=== PATIENT | female | born 1940 | race Caucasian/White ===

== ENCOUNTER → 2021-07-04 | Outpatient (CLI) | payer MEDICARE | END | disposition home or self-care (01) | LOC: RAH 12:09 | PROVIDERS: ATTEND Family Medicine | DX: R22.32 Localized swelling, mass and lump, left upper limb (principal); M19.042 Primary osteoarthritis, left hand; M85.842 Other specified disorders of bone density and structure, left hand | CPT/HCPCS: 73130 ==

== ENCOUNTER 2024-02-29 05:45 | Observation (INO) | payer MEDICARE ==
[2024-02-25 10:36] LABS: APPEARANCE,URINE CLOUDY (CLEAR); BILIRUBIN,URINE NEGATIVE (NEGATIVE); COLOR,URINE YELLOW (YELLOW); GLUCOSE, URINE (UA) NEGATIVE (NEGATIVE); KETONES,URINE NEGATIVE (NEGATIVE); LEUKOCYTE ESTERASE ,URINE 500 Leu/uL (NEGATIVE); NITRATE,URINE 2+ (NEGATIVE); OCCULT BLOOD,URINE NEGATIVE (NEGATIVE); PROTEIN,URINE 20 mg/dL (NEGATIVE); UROBILINOGEN,URINE 0.2 mg/dL (0.2-1.0)
[2024-02-25 10:37] LABS: ADD UA MICROSCOPIC YES
[2024-02-25 10:59] VITALS: BP 150/78; PULSE 64; RESP 18
[2024-02-25 11:24] LABS: BACTERIA,URINE MANY /HPF (None Seen); MUCUS,URINE MOD LPF (None Seen); SQUAMOUS EPITHELIAL CELL,UR MANY /HPF (0-2); WBC,URINE 51-100 /HPF (0-1)
[2024-02-29] VITALS (27 sets, daily range): BP systolic 118–141; BP diastolic 50–86; PULSE 46–64; RESP 15–18; O2SAT 99
[~2024-02-29] VITALS: Ht 170.2 cm; Wt 77.1 kg
[~2024-02-29 05:45] MED LIST: ASCO500T19 PO; ATOR10TA69 PO; CALCIUM PO; COQ10 PO; LUTE20CA PO; MAGN250T10 PO; MVI PO; OMEGA 3 PO; VITA1TAB22 PO; VITAMIN B12 PO; ZINC50TA64 PO
[2024-02-29] MEDS: LACTATED RINGERS 1000ML 1,000 ML IV ONE (07:08)
[2024-02-29] MEDS: TRANEXAMIC ACID 1000MG/10ML ONE (07:42)
[2024-02-29] MEDS ORDERED: LIDOCAINE PF 100MG/5ML (2%) SYRINGE 5ML ONE (07:50)
[2024-02-29] MEDS ORDERED: FENTANYL CITRATE PF 50 MCG/1 ML 2ML VIAL ONE (07:50)
[2024-02-29] MEDS ORDERED: PROPOFOL 10 MG/ML 20ML VIAL IV ONE (07:50)
[2024-02-29] MEDS ORDERED: MIDAZOLAM HCL 1 MG/ML 2ML VIAL ONE (07:50)
[2024-02-29] MEDS ORDERED: ROCURONIUM BROMIDE 10MG/1ML 5ML VL ONE ×2 (07:51→08:47)
[2024-02-29] MEDS ORDERED: KETOROLAC 30MG VIAL (30MG/ML) ONE (07:51)
[2024-02-29] MEDS ORDERED: DEXAMETHASONE SOD PHOSPHATE 10MG/ML 1ML VIAL ONE (07:51)
[2024-02-29] MEDS ORDERED: PHENYLEPHRINE HCL 10 MG/ML 1ML VIAL IV ONE (07:52)
[2024-02-29] MEDS ORDERED: ONDANSETRON 4MG INJ ONE (07:52)
[2024-02-29] MEDS ORDERED: ROPIVACAINE 0.5% 5MG/ML 30ML ONE ×2 (07:58→07:59)
[2024-02-29] MEDS ORDERED: GLYCOPYRROLATE 0.2 MG/ML 5 ML VIAL ONE (08:29)
[2024-02-29] MEDS ORDERED: EPHEDRINE SULFATE 50 MG/ML AMPULE ONE (08:45)
[2024-02-29] MEDS: CEFAZOLIN SODIUM 2 GM VIAL ONE ×2 (08:47→18:03)
[2024-02-29] MEDS ORDERED: POTASSIUM CHLORIDE 20MEQ/100ML 100 ML IV PRN (11:30)
[2024-02-29] MEDS ORDERED: DOCU-116 PO (11:30)
[2024-02-29] MEDS: KETOROLAC 15MG/ML VIAL (15MG/ML) IV SCH (11:30)
[2024-02-29] MEDS ORDERED: KCL 20 MEQ ERTAB PO PRN (11:30)
[2024-02-29] MEDS ORDERED: LEVO-70 PO (11:30)
[2024-02-29] MEDS ORDERED: ONDANSETRON 4MG INJ IVP PRN (11:30)
[2024-02-29] MEDS ORDERED: HYDR-4060 PO (11:30)
[2024-02-29] MEDS ORDERED: FERROUS FUMARATE 324 MG TABLET PO PRN (11:30)
[2024-02-29] MEDS: 0.9%NACL 1000ML 1,000 ML IV SCH (11:30)
[2024-02-29] MEDS ORDERED: TRAMADOL HCL 50 MG TABLET PO PRN (11:30)
[2024-02-29] MEDS ORDERED: CYCL-309 PO (11:30)
[2024-02-29] MEDS ORDERED: ASPI-891 PO (11:30)
[2024-02-29] MEDS ORDERED: POTASSIUM CHLORIDE 10% ELIXIR 20 MEQ/15 ML UDCUP PO PRN (11:30)
[2024-02-29] MEDS: HYDROCODONE/ACETAMINOPHEN 5/325 MG TAB ONE (14:28)
[2024-02-29] MEDS: CEFAZOLIN SODIUM 2 GM VIAL IVPB SCH (18:03)
[2024-02-29] MEDS: KETOROLAC 15MG/ML VIAL (15MG/ML) ONE (18:03)
[2024-02-29] MEDS: DOCUSATE SODIUM 100 MG CAP PO SCH (20:23)
[2024-02-29] MEDS: GABAPENTIN 100 MG CAPSULE PO SCH (20:23)
[2024-02-29] MEDS: ATORVASTATIN 10 MG TABLET PO SCH (20:25)
[2024-02-29] MEDS: GUM PO SCH ×3 (20:32)
[2024-02-29] MEDS: VITAMIN B12 500 MCG PO SCH (20:33)
[2024-03-01] VITALS: BP 130/70; PULSE 68; RESP 18
[2024-03-01 04:00] VITALS: BP 120/75; PULSE 61; RESP 18
[2024-03-01 05:10] LABS: HEMATOCRIT 35.2 % (36-48); MEAN CORPUSCULAR HEMOGLOBIN 31.7 pg (27.0-33.0); MEAN CORPUSCULAR HGB CONC 31.5 g/dL (32.0-36.0); MEAN CORPUSCULAR VOLUME 100.6 fL (79-99); RED BLOOD CELL COUNT(AUTO) 3.5 MIL/uL (4.00-5.50); RED CELL DISTRIBUTION WIDTH 13.2 % (11.0-15.5); WHITE BLOOD COUNT (AUTO) 8.1 K/uL (4.8-10.8)
[2024-03-01 05:23] LABS: CREATININE 0.9 mg/dL (0.5-1.0); POTASSIUM 4.1 mmol/L (3.5-5.1)
[2024-03-01 08:00] VITALS: BP 120/62; PULSE 70; RESP 18
[2024-03-01] MEDS: LEVOFLOXACIN 500 MG TABLET PO SCH (09:23)
[2024-03-01] MEDS: ASPIRIN 325MG EC TAB PO SCH (09:23)
[2024-03-01] MEDS: CALCIUM CARB 500MG PO PRN (09:23)
[2024-03-01] MEDS: CYCLOBENZAPRINE HCL 10 MG TABLET PO PRN (09:24)
[2024-03-01] MEDS: HYDROCODONE/ACETAMINOPHEN 5/325 MG TAB PO PRN (09:28)
[2024-03-01] MEDS: ASCORBIC ACID PO SCH (09:28)
[2024-03-01] MEDS: ASCORBATE SODIUM PO SCH (09:28)
[2024-03-01] MEDS: VITAMIN B COMPLEX PO SCH (09:29)
[2024-03-01] MEDS: MAGNESIUM OXIDE 250 MG PO SCH (09:29)
[2024-03-01] MEDS: COQ10 100 MG PO SCH (09:29)
[2024-03-01] MEDS: (Lutein 20 MG) PO SCH (09:29)
[2024-03-01] MEDS: (Zinc Amino Acid Chelate (Zinc) 50 MG) PO SCH (09:29)
[2024-03-01] MEDS: POLYETHYLENE GLYCOL 3350 17 GM POWD.PACK PO SCH (09:32)
[2024-03-01 12:00] VITALS: BP 108/74; PULSE 69; RESP 20
[2024-03-01] MEDS: KETOROLAC 15MG/ML VIAL (15MG/ML) IV PRN (12:54)
[2024-03-01 16:00] VITALS: BP 110/68; PULSE 72; RESP 20
[2024-03-01 16:15] VITALS: O2SAT 99
[2024-03-03] MEDS ORDERED: BISACODYL 10 MG SUPP.RECT RC PRN (11:30)
== END 2024-03-01 18:15 | disposition home or self-care (01) ==
LOC: DAH 05:45 → DAHIP 05:46 → EDSTATUS 15:00 → 4AH 18:08
PROVIDERS: ADMIT Student in an Organized Health Care Education/Training Program; ATTEND Student in an Organized Health Care Education/Training Program
DX: M16.11 Unilateral primary osteoarthritis, right hip (principal); G89.18 Other acute postprocedural pain; D62 Acute posthemorrhagic anemia; M24.561 Contracture, right knee; R26.89 Other abnormalities of gait and mobility; E78.5 Hyperlipidemia, unspecified; Z96.642 Presence of left artificial hip joint; Z79.899 Other long term (current) drug therapy; Z98.890 Other specified postprocedural states; Z86.73 Personal history of transient ischemic attack (TIA), and cerebral infarction without residual deficits
CPT/HCPCS: 87077; 87088; 87186; 84134; 86140; 81001; 36415 ×2; 87641; 96375; 64447; 73503; 27130; 73521; 97161; 97116 ×3; 96376; 96365; 80048; 85027; 97530 ×3; G0378 ×22; A4663; C1776; J7120; J3010; J3490 ×5; J1100; J2001; J2250; J2704; J2405; J1885 ×5; J2795 ×2; J2371; J0690 ×3; A4649 ×3; G0168; A6255; A5120; A4215; A4223; A4222; A4221; 96366